=== PATIENT | male | born 1955 | race Asian ===

== ENCOUNTER 2016-07-14 12:20 | Day surgery (SDC) | payer OTHER ==
[2016-07-13 13:46] VITALS: BMI 30.7
[2016-07-14] VITALS (10 sets, daily range): BP systolic 133–173; BP diastolic 74–96; PULSE 68–78; RESP 16–20; Ht 180.3 cm; Wt 103.3 kg
[~2016-07-14] VITALS: Ht 180.3 cm; Wt 103.3 kg
[~2016-07-14 12:20] MED LIST: CEFAZOLIN 1 GM INJ ONE; CEFAZOLIN 2 GM/50 ML (PMX) 50 ML IVPB ONE; SOD CHLORIDE 0.9% 1,000 ML IV SCH
[2016-07-14] MEDS ORDERED: CARV6.2579 PO (13:18)
[2016-07-14] MEDS ORDERED: ISOS10TA2 PO (13:18)
[2016-07-14] MEDS ORDERED: ASPI81TA3 PO (13:18)
[2016-07-14] MEDS ORDERED: CLOP300T15 PO (13:18)
[2016-07-14] MEDS ORDERED: LISI20TA11 PO (13:18)
[2016-07-14] MEDS ORDERED: NOVO7030 SC ×2 (13:18)
--- NOTE | 2016-07-14 13:43 | RADRPT ---
PROCEDURE: XR Chest 1 view. CLINICAL INDICATION: Abnormal breath sounds, preop. TECHNIQUE: AP views of the chest were obtained. COMPARISON: None. FINDINGS: The heart is large. Calcified atherosclerosis is noted in the aorta. The lungs are hyperexpanded. Mild central pulmonary vascular congestion is observed. Scattered atelectasis is identified in the bilateral lower lobes. No consolidations are identified. No pneumothorax is seen. Osseous structure s are intact. IMPRESSION: Cardiomegaly with calcified atherosclerosis in the aorta. Mild central pulmonary vascular congestion. Scattered atelectasis in the bilateral lower lobes. Hyperexpanded lungs. RPTAT: AA .Colten Doe MD, Date Time Electronically viewed and signed by .Colten Doe MD, MD on 07/14/2016 13:43 .P/
[2016-07-14] MEDS ORDERED: ONDANSETRON 4 MG INJ ONE (14:38)
[2016-07-14] MEDS ORDERED: BUPIVACAINE 0.5% (SDV) 30 ML INJ ONE (14:44)
[2016-07-14] MEDS ORDERED: LIDOCAINE 2%/EPI 30 ML INJ ONE (14:44)
[2016-07-14] MEDS ORDERED: hydrALAzine 20 MG INJ ONE (14:51)
[2016-07-14] MEDS ORDERED: LIDOCAINE 2% (MDV) 20 ML INJ ONE (14:51)
--- NOTE | 2016-07-14 14:52 | RADRPT ---
Vent Rate: 62 bpm RR Interval: 0 msec VT Interval: 188 msec QRS Duration: 90 msec QT Interval: 444 msec QTC Interval: 450 msec P-R-T Bryant: 65 - 24 - -8 degrees Normal sinus rhythm Low voltage QRS Septal infarct , age undetermined Abnormal ECG Electronically Signed By: Timur Garner [id number]
--- NOTE | 2016-07-14 15:40 | OPR ---
DATE OF OPERATION: 07/14/2016 INDICATIONS: This is a 60-year-old male with a 2 forehead masses. He requests surgical excision. Risks, alternatives, benefits, and personnel were discussed with the patient. The patient expressed his understanding and consents to the operation. PREOPERATIVE DIAGNOSIS: Forehead mass x2. POSTOPERATIVE DIAGNOSIS: Forehead mass x2. OPERATION PERFORMED: 1. Excision of forehead mass in the right forehead with 2 cm size incision and 2 cm size mass. 2. Left forehead with 2 size incision and 2 cm size mass. 3. Localized adjacent tissue transfer with use of skin flaps. SURGEON: Dariel Jolley MD SPECIMENS: Forehead mass x2. COMPLICATIONS: None. ANESTHESIA: MAC. PROCEDURE: The patient was taken to the OR and prepped and draped in the usual sterile fashion. Kothari rgical timeout was performed. IV antibiotics were given. Local anesthesia was injected to both sanjana gical sites. A transverse incision is made with a 15 blade. Dissection cautery was carried down to the mass and circumferentially excised. This was performed for both sites. Due to the tissue defe ct, localized adjacent tissue transfer with the use of skin flaps was performed. Closure with inter rupted 3-0 Vicryl. Dry dressings were applied. Dictated By: DARIEL CORTEZ/MASOOD Conf#: [id number] DID#: [id number]
[2016-07-14] MEDS ORDERED: HYDROCODONE/APAP (5/325) TAB PO ONE (16:00)
== END 2016-07-14 16:58 | disposition home or self-care (01) ==
LOC: SDS 12:20
PROVIDERS: ATTEND Surgery
DX: L72.0 Epidermal cyst (principal); E11.22 Type 2 diabetes mellitus with diabetic chronic kidney disease; I12.9 Hypertensive chronic kidney disease with stage 1 through stage 4 chronic kidney disease, or unspecified chronic kidney disease; N18.9 Chronic kidney disease, unspecified; I25.10 Atherosclerotic heart disease of native coronary artery without angina pectoris; Z95.5 Presence of coronary angioplasty implant and graft
CPT/HCPCS: 14040; 71010; 82962; 88307; 93005; J0360; J0690; J3010; J2405